=== PATIENT | female | born 1995 | race Caucasian/White ===

== ENCOUNTER 2024-09-22 22:35 | Emergency (ER) | payer OTHER, SELFPAY ==
--- NOTE | ~2024-09-22 | XR_ITS ---
Clinical Indication: Chest pain PA and lateral views of the chest: Comparison: None Findings: The lungs are clear, without evidence of focal consolidation or pleural effusion. Cardiome diastinal silhouette is within normal limits. Bones and soft tissues are unremarkable. Impression: Normal chest. Reviewed, dictated and finalized at location . Impression: Normal chest.
[2024-09-22 22:39] VITALS: BP 161/100; PULSE 119; RESP 20; TEMP 36.5; O2SAT 100
[2024-09-22 22:46] VITALS: PULSE 81
--- NOTE | 2024-09-22 22:46 | ECG_ITS ---
Test Date: 2024-09-22 22:55:24 Measurements Intervals [place] Rate: 91 P: 68 MO: 134 QRS: 80 QRSD: 97 T: -3 QT: 394 QTc: 486 Interpretive Statements SINUS RHYTHM INCOMPLETE RIGHT BUNDLE BRANCH BLOCK BORDERLINE T WAVE ABNORMALITY- INFRIOR LEADS BORDERLINE ECG No previous ECG available for comparison Electronically Signed On 09-23-2024 07:05:45 CDT by Pb Ibarra D.O.
[2024-09-22 23:22] LABS: Basophils Absolute Auto 0.1 K/mm3 (0.0-0.1); Basophils Percent Auto 1.3 % (0.2-1.2); Eosinophils Absolute Auto 0.2 K/mm3 (0-0.3); Eosinophils Percent Auto 4.2 % (0-4.4); Hematocrit 40.9 % (37.0-47.0); Hemoglobin 13.2 g/dL (12.0-15.0); Immature Granulocyte Absolute 0.03 K/mm3 (0.00-0.031); Immature Granulocyte Percent A 0.7 % (0-0.5); Lymphocytes Absolute Auto 1.56 K/mm3 (0.9-3.2); Lymphocytes Percent Auto 34.4 % (18.3-44.2); Mean Corpuscular HGB Conc 32.3 g/dl (32-36); Mean Corpuscular Hemoglobin 30.1 pg (26-34); Mean Corpuscular Volume 93.4 fl (80-100); Mean Platelet Volume 9.4 fl (7.4-10.4); Monocytes Absolute Auto 0.6 K/mm3 (0.1-0.6); Monocytes Percent Auto 14.1 % (2.6-8.5); Neutrophils Absolute Auto 2.1 K/mm3 (1.3-6.7); Neutrophils Percent Auto 45.3 % (45.5-73.1); Platelet Count Result 294 k/mm3 (150-375); Red Blood Count 4.38 M/mm3 (4.2-5.4); Red Cell Distribution Width 12.6 % (11.5-14.5); White Blood Count 4.5 K/mm3 (4.5-10.0)
[2024-09-22 23:26] LABS: Alanine Aminotransferase 24 U/L (6-35); Albumin Level 5.1 g/dL (3.5-5.1); Alkaline Phosphatase 78 U/L (38-126); Anion Gap 10 mmol/L (4-12); Aspartate Amino Transferase 39 U/L (14-36); Bilirubin,Total 0.2 mg/dL (0.2-1.3); Blood Urea Nitrogen 17 mg/dL (7-17); Calcium 9.5 mg/dL (8.4-10.2); Carbon Dioxide 29 mmol/L (22-30); Chloride 101 mmol/L (98-107); Estimated CRCL calculation 81 ml/min; Estimated Glomerular Filt Rate > 60; Glucose 95 mg/dL (65-110); Lipase 127 U/L (23-300); Potassium 3.9 mmol/L (3.4-5.0); Sodium 140 mmol/L (137-145)
[2024-09-22 23:37] LABS: INR 0.9; Prothrombin Time 12.1 Seconds (11.1-14.7); Troponin I < 0.012 ng/mL (0.000-0.034)
[2024-09-22 23:38] LABS: Partial Thromboplastin Time 23.1 Seconds (22.3-36.8)
[2024-09-23 02:05] LABS: Troponin I < 0.012 ng/mL (0.000-0.034)
[2024-09-23 02:17] VITALS: RESP 14
[2024-09-23 02:20] VITALS: BP 139/91; PULSE 85; RESP 16; O2SAT 100
[2024-09-23 02:40] LABS: D Dimer 0.29 ug/mL (<0.48)
--- NOTE | 2024-09-23 03:02 | ED_ITS ---
HPI - General Adult General Chief complaint: Unspecified Stated complaint: L rib pain, pressure in chest Time Seen by Provider: 09/23/24 01:12 History of Present Illness HPI narrative: Patient 28-year-old female who presents emergency department with chief complaint of left-sided chest pain. Patient reports she had some drinks this evening and a event reports this evening she started having some discomfort on the left side of her chest patient reports pain radiated to her back patient states was a sharp component but also had some pressure. The patient states was more in the rib area. Related Data Allergies Allergy/AdvReac Type Severity Reaction Status Date / Time No Known Allergies Allergy Verified 09/22/24 23:05 Review of Systems 2 Review of Systems: A 10 system review of systems was completed on the patient and is negative except for what is stated in the HPI. Nursing and ancillary documentation was reviewed. Exam 2 Narrative: GENERAL: Well-appearing, well-nourished, and in no acute distress. HEAD: Normocephalic, atraumatic. EYES: PERRLA and EOMI. ENT: Nares clear, no rhinorrhea or epistaxis. Mucous membranes moist. NECK: Supple. CHEST: Clear to auscultation. No respiratory distress. HEART: Regular rate and rhythm. No murmur heard. Normal peripheral pulses. ABDOMEN: Soft, nontender, nondistended, normal active bowel sounds. EXTREMITIES: Normal range of motion. No edema. SKIN: Warm, dry, no rash. NEURO: No focal deficits. Alert and oriented x3. PSYCH: Normal mood and affect. Course Vital Signs Vital signs: Vital Signs Temperature 36.5 C 09/22/24 22:39 Pulse Rate 119 H 09/22/24 22:39 Respiratory Rate 20 09/22/24 22:39 Blood Pressure 161/100 H 09/22/24 22:39 Pulse Oximetry 100 09/22/24 22:39 Oxygen Delivery Room Air 09/22/24 22:39 Temperature 36.5 C 09/22/24 22:39 Pulse Rate 85 09/23/24 02:20 Respiratory Rate 16 09/23/24 02:20 Blood Pressure 139/91 H 09/23/24 02:20 Pulse Oximetry 100 09/23/24 02:20 Oxygen Delivery Room Air 09/22/24 22:39 Medical Decision Making [facility] Narrative Medical decision making narrative: Differential diagnosis includes pneumothorax, PE, ACS, Laboratory studies were obtained on the patient showed a normal CBC CMP was within normal limits lipase was normal D-dimer was -0 and 3 hour troponin were negative EKG showed no acute ischemic changes chest x-ray showed no focal infiltrate no evidence of pneumothorax Vital Signs Vital Signs: Vital Signs Temperature 36.5 C 09/22/24 22:39 Pulse Rate 119 H 09/22/24 22:39 Respiratory Rate 20 09/22/24 22:39 Blood Pressure 161/100 H 09/22/24 22:39 Pulse Oximetry 100 09/22/24 22:39 Oxygen Delivery Room Air 09/22/24 22:39 Temperature 36.5 C 09/22/24 22:39 Pulse Rate 85 09/23/24 02:20 Respiratory Rate 16 09/23/24 02:20 Blood Pressure 139/91 H 09/23/24 02:20 Pulse Oximetry 100 09/23/24 02:20 Oxygen Delivery Room Air 09/22/24 22:39 Lab Data 09/22/24 23:08 09/22/24 23:08 Labs: Lab Results 09/22/24 09/23/24 Range/Units 23:08 01:39 WBC 4.5 (4.5-10.0) K/mm3 RBC 4.38 (4.2-5.4) M/mm3 Hgb 13.2 (12.0-15.0) g/dL Hct 40.9 (37.0-47.0) % MCV 93.4 (80-100) fl MCH 30.1 (26-34) pg MCHC 32.3 (32-36) g/dl RDW 12.6 (11.5-14.5) % Plt Count 294 (150-375) k/mm3 MPV 9.4 (7.4-10.4) fl Immature Gran % (Auto) 0.7 H (0-0.5) % Neut % (Auto) 45.3 L (45.5-73.1) % Lymph % (Auto) 34.4 (18.3-44.2) % [place] % (Auto) 14.1 H (2.6-8.5) % Eos % (Auto) 4.2 (0-4.4) % Baso % (Auto) 1.3 H (0.2-1.2) % Lymph # (Auto) 1.56 (0.9-3.2) K/mm3 [place] # (Auto) 0.6 (0.1-0.6) K/mm3 Eos # (Auto) 0.2 (0-0.3) K/mm3 Baso # (Auto) 0.1 (0.0-0.1) K/mm3 Abs Immat Gran (auto) 0.03 (0.00-0.031) K/mm3 Absolute Neuts (auto) 2.1 (1.3-6.7) K/mm3 Absolute Nucleated RBC 0.000 (0.0-0.012) K/mm3 Nucleated RBC % 0.0 (0.0-0.2) % PT 12.1 (11.1-14.7) Seconds INR 0.9 APTT 23.1 (22.3-36.8) Seconds D-Dimer 0.29 (<0.48) ug/mL Sodium 140 (137-145) mmol/L Potassium 3.9 (3.4-5.0) mmol/L Chloride 101 (98-107) mmol/L Carbon Dioxide 29 (22-30) mmol/L Anion Gap 10 (4-12) mmol/L BUN 17 (7-17) mg/dL Creatinine 0.84 (0.7-1.0) mg/dL Estim Creat Clear Calc 81 ml/min Estimated GFR > 60 (59 - ) Glucose 95 (65-110) mg/dL Calcium 9.5 (8.4-10.2) mg/dL Total Bilirubin 0.2 (0.2-1.3) mg/dL AST 39 H (14-36) U/L ALT 24 (6-35) U/L Alkaline Phosphatase 78 (38-126) U/L Troponin I < 0.012 < 0.012 (0.000-0.034) ng/mL Total Protein 8.0 (6.3-8.2) g/dL Albumin 5.1 (3.5-5.1) g/dL Lipase 127 (23-300) U/L Discharge Plan Discharge Clinical Impression: Atypical chest pain Patient Disposition: Home Condition: Stable Instructions: Antibiotic Form, Chest Pain (ED) Patient Language: Sinhala Follow-up/Referrals: Karli,Nidhi Lucero, CAMPAIGN MARKETING MANAGER [Primary Care Provider] - Time of Disposition: 03:08
[2024-09-23 03:55] VITALS: BP 140/97; PULSE 78; RESP 17; O2SAT 98
[2024-09-23 04:09] VITALS: BP 139/91; PULSE 85; RESP 16; O2SAT 100
== END 2024-09-23 04:10 | disposition home or self-care (01) ==
PROVIDERS: Emergency Provider Emergency Medicine; PCP Nurse Practitioner
DX: R07.89 Other chest pain (principal)
CPT/HCPCS: 36415; 71046; 80053; 83690; 84484; 85025; 85380; 85610; 85730; 93005; 99284